=== PATIENT | female | born 1970 | race Caucasian/White ===

== ENCOUNTER 2024-12-21 09:38 | Outpatient (CLI) | payer BC, SELFPAY | END 2024-12-21 09:39 | disposition home or self-care (01) | LOC: NFLDREF 12-22 09:40 | PROVIDERS: PCP Family Medicine; Referring Provider Family Medicine; Visit Provider Obstetrics & Gynecology | DX: R33.9 Retention of urine, unspecified (principal) | CPT/HCPCS: 87086 ==